=== PATIENT | female | born 1995 | race Two or more races ===

== ENCOUNTER 2021-12-12 20:50 | Emergency (ER) | payer OTHER ==
[~2021-12-12] VITALS: Ht 165.1 cm; Wt 60.8 kg
[2021-12-12] MEDS ORDERED: PRENATAL + DHA1 EAC1 (20:57)
[2021-12-12] MEDS ORDERED: PEPCID AC20 MG PO (23:15)
[2021-12-12] MEDS ORDERED: ONDANSETRON ODT8 MG PO (23:15)
== END 2021-12-12 23:20 | disposition home or self-care (01) ==
LOC: ER 20:50
DX: O26.891 Other specified pregnancy related conditions, first trimester (principal); Z3A.01 Less than 8 weeks gestation of pregnancy; R10.13 Epigastric pain